=== PATIENT | male | born 1950 | race Caucasian/White ===

== ENCOUNTER 2017-10-01 05:34 | Day surgery (SDC) | payer BC, OTHER ==
[~2017-10-01] VITALS: Ht 177.8 cm; Wt 77.1 kg
--- NOTE | ~2017-10-01 | O ---
[facility] [place] [address] OPERATIVE REPORT Name: LIZZ NORTON Room #: 150-5 [facility]..#: [id number] Admission: 10/01/17 Attend Phys: Wisam Ventura MD Discharge: Date of : 52 Report #: [id number] THIS REPORT FOR: //name// CC: Tyler Ventura DATE OF SERVICE: 10/01/2017 [employer] OPERATOR HAND: None. PREOPERATIVE DIAGNOSIS: Unilateral left upper lid ptosis. POSTOPERATIVE DIAGNOSIS: Unilateral left upper lid ptosis. OPERATION PERFORMED: Unilateral left upper lid ptosis repair. ANESTHESIA: Local anesthesia with IV sedation. COMPLICATIONS: None. INDICATIONS FOR SURGERY: This patient has left upper lid ptosis with superior visual field loss. Visual field testing demonstrates dense superior visual defects. Retesting with the upper lid elevated shows an improvement in visual field loss of over 30% and in excess of 12 degrees. The current procedure is undertaken in order to improve the patient's visual function. Informed consent was obtained to include but not limited to the potential risks for bleeding, scarring, infection, loss of vision, failure to improve the problem, need for further surgery and need for adjustment of lid height. DESCRIPTION OF PROCEDURE: The patient was taken to the operating room, where a left upper lid crease was drawn with a skin marking pen. The incision was then made with Bridger scissors and dissected down to the orbital septum. Hemostasis was achieved with a monopolar cautery as it was throughout the case. The orbital septum was then entered and the preaponeurotic fat identified. The levator aponeurosis was then disinserted from the anterior surface of the tarsal plate and dissected free in the avascular Garcia's muscle plane. The aponeurosis was then advanced onto the anterior surface of the tarsal plate and reattached with mattress double-arm 6-0 Novafil sutures, adjusting for height and contour. The redundant aponeurosis was then amputated. The upper lid crease was then reformed with interrupted 6-0 chromic sutures. The skin was closed with interrupted 6-0 plain gut suture. The wound was then cleaned and dressed with ophthalmic antibiotic ointment. [address] [address] OPERATIVE REPORT Name: LIZZ NORTON Room #: [address] [place] [address].#: [id number] Admission: 10/01/17 Attend Phys: Wisam Ventura MD Discharge: Date of : 52 Report #: [id number] The patient was then transported to the recovery area, having tolerated the procedure well with no anesthesia or operative complications being noted. By: [id number] Wisam Ventura MD /nt
[~2017-10-01 05:34] MED LIST: AMLODIPINE-BEN1 EAC5 PO; ASPIR 8181 M1 PO; LIPITOR20 MG PO; VITAMIN D1000 UNI1 PO
[2017-10-01 09:38] VITALS: BP 155/52
== END 2017-10-01 12:00 | disposition home or self-care (01) ==
LOC: OR 05:34 → TBA 05:36 → OR 10:29
DX: H02.402 Unspecified ptosis of left eyelid (principal); I10 Essential (primary) hypertension; E78.5 Hyperlipidemia, unspecified; Z98.41 Cataract extraction status, right eye; Z98.42 Cataract extraction status, left eye; Z85.46 Personal history of malignant neoplasm of prostate; Z87.442 Personal history of urinary calculi; Z98.890 Other specified postprocedural states; Z79.899 Other long term (current) drug therapy; Z79.82 Long term (current) use of aspirin
CPT/HCPCS: 50010; 50101; 50386; 50398; 51636; 56528; 56531; 70005